=== PATIENT | female | born 1975 | race Caucasian/White ===

== ENCOUNTER 2023-12-30 08:08 | Emergency (ER) | payer OTHER, SELFPAY ==
[2023-12-30] VITALS (11 sets, daily range): BP systolic 101–157; BP diastolic 62–82; PULSE 65–90; RESP 11–29; TEMP 36.6; O2SAT 95–98; BMI 26.6
--- NOTE | 2023-12-30 08:13 | DI.RAD.S_ITS ---
PROCEDURE: XR CHEST 1V INDICATIONS: chest pain TECHNIQUE: One view of the chest was acquired. COMPARISON: None. FINDINGS: Surgical changes and devices: None. Lungs and pleura: Lungs are clear. No pleural effusions or pneumothorax. Mediastinum: Mediastinal contours appear normal. Heart size is normal. Bones and chest wall: No suspicious bony lesions. Overlying soft tissues appear unremarkable. IMPRESSION: No acute cardiopulmonary abnormality is seen. Approved by: Shwetha Martisn M.D. on 12/30/2023 at 9:30
--- NOTE | 2023-12-30 08:51 | ED.CHESTPAIN ---
HPI - Chest Pain General Chief Complaint: Chest Pain Stated Complaint: chets pain, difficulty breathing Time Seen by Provider: 12/30/23 08:18 Source: patient Mode of arrival: Ambulatory History of Present Illness HPI narrative: Patient 48-year-old healthy female presents today with upper respiratory like symptoms.. She reports that they been ongoing for 5 days. She has been traveling recently. About 4 days ago she got a really sore throat she has had some body aches but no real fever. She presents today because every time she takes a deep breath she does not feel like she is in healing all the way and it hurts the end. No productive cough no abdominal pain nausea or vomiting. Related Data Home Medications Medication Instructions Recorded Confirmed No Known Home Medications 12/30/23 12/30/23 Allergies Allergy/AdvReac Type Severity Reaction Status Date / Time No Known Drug Allergies Allergy Verified 12/30/23 08:24 Patient History Social History Smoking Status: Never smoker Smoking Status: Never smoker alcohol intake frequency: holidays/special occasions only Substance Use Type: marijuana Exam Initial Vital Signs Initial Vital Signs: Vital Signs Pulse Rate 90 12/30/23 08:15 Respiratory Rate 15 12/30/23 08:15 Pulse Oximetry 97 12/30/23 08:15 GENERAL: Alert pleasant 48-year-old female and in no acute distress. HEENT: Head atraumatic,EOMI, pupils reactive, face symmetric, moist mucous membranes CARDIOVASCULAR: Regular rate and rhythm without murmurs, rubs or gallops. RESPIRATORY: Breath sounds equal bilaterally, no wheezes rales or rhonchi. No conversational dyspnea ABDOMEN: Soft, nontender. Normoactive bowel sounds all 4 quadrants. No guarding or rebound. EXTREMITIES: Normal range of motion, no clubbing or edema. Neurovascularly intact NEUROLOGICAL: Alert and oriented x4.Normal gait and speech. SKIN: Warm, dry, no laceration, no petechiae, no rashes or lesions. Course Orders Ordered: ED Orders 12/30/23 08:13 XR chest 1V Stat 12/30/23 08:20 Covid-19 + FLU A/B + RSV - PCR Stat EKG-12 Lead Stat 12/30/23 08:24 Complete Blood Count AUTO DIFF Stat Comprehensive Metabolic Panel Stat DD [D Dimer] Stat Lipase Stat Magnesium Stat PTT Partial Thromboplastin Klaus Stat Prothrombin Time INR Stat Troponin & CK Cardiac Panel Stat Discontinued Medications Albuterol (Albuterol 2.5 Mg/3 Ml Neb (Adult)) 2.5 mg INH NOW ONE Stop: 12/30/23 08:58 Last Admin: 12/30/23 09:19 Dose: 2.5 mg Documented By: KARLIE Albuterol (Albuterol Hfa Prepack) 1 box MISC DIRECTED ONE Stop: 12/30/23 10:11 Last Admin: 12/30/23 10:47 Dose: 1 box Documented By: ROXANNE Aspirin (Aspirin 81 Mg Chew Tab) 324 mg PO NOW ONE Stop: 12/30/23 08:14 Last Admin: 12/30/23 09:27 Dose: Not Given Documented By: ROXANNE Vital Signs Vital signs: Vital Signs - 8 hr 12/30/23 08:15 12/30/23 08:16 12/30/23 08:16 Temperature Pulse Rate 90 87 Respiratory Rate 15 14 Blood Pressure 157/82 H Pulse Oximetry 97 97 Oxygen Delivery Method 12/30/23 08:21 12/30/23 08:30 12/30/23 09:00 Temperature 97.9 F Pulse Rate 79 81 75 Respiratory Rate 17 24 29 H Blood Pressure 157/62 H Pulse Oximetry 98 97 97 Oxygen Delivery Method Room Air 12/30/23 09:20 12/30/23 09:25 12/30/23 09:25 Temperature Pulse Rate 77 65 Respiratory Rate 16 11 L Blood Pressure 111/72 Pulse Oximetry 97 98 Oxygen Delivery Method Room Air 12/30/23 09:30 12/30/23 09:30 12/30/23 10:00 Temperature Pulse Rate 75 70 Respiratory Rate 21 14 Blood Pressure 114/76 Pulse Oximetry 97 95 Oxygen Delivery Method 12/30/23 10:00 12/30/23 10:30 12/30/23 10:30 Temperature Pulse Rate 70 Respiratory Rate 16 Blood Pressure 101/67 106/71 Pulse Oximetry 96 Oxygen Delivery Method Room Air 12/30/23 11:01 Temperature Pulse Rate 69 Respiratory Rate 18 Blood Pressure 106/71 Pulse Oximetry 98 Oxygen Delivery Method Room Air MDM - Chest Pain Lab Data 12/30/23 08:24 12/30/23 08:24 Labs: Lab Results 12/30/23 12/30/23 Range/Units 08:20 08:24 WBC 6.2 (4.5-11.0) X10^3/uL RBC 4.46 (4.0-5.2) X10^6/uL Hgb 13.4 (12.0-16.0) g/dL Hct 39.7 (36-46) % MCV 89.1 (80-100) fL MCH 30.1 (26-34) PG MCHC 33.8 (30-36) % RDW 13.4 (11.6-14.8) % Plt Count 194 (150-400) X10^3/uL Neut % (Auto) 72.1 (50-75) % Lymph % (Auto) 19.2 L (25-40) % [place] % (Auto) 6.7 (3-14) % Eos % (Auto) 1.4 L (2-4) % Baso % (Auto) 0.6 (0-2) % Neut # (Auto) 4500 (9506-3870) /uL Lymph # (Auto) 1200 (2947-5968) /uL [place] # (Auto) 400 (0-900) /uL Eos # (Auto) 100 (0-450) /uL Baso # (Auto) 0 (0-100) /uL PT 11.6 (9.4-12.5) SECONDS INR 1.0 (0.9-1.3) APTT 35 (25.1-36.5) SECONDS D-Dimer 354 (<500) ng/ml Sodium 139 (137-145) mmol/L Potassium 4.3 (3.4-5.1) mmol/L Chloride 107 (98-107) mmol/L Carbon Dioxide 25 (22-32) mmol/L BUN 10 (7-17) mg/dL Creatinine 0.71 (0.52-1.04) mg/dL Estimated GFR > 60 (>60) mL/min BUN/Creatinine Ratio 14.1 (6-22) Glucose 99 (70-100) mg/dL Calcium 9.1 (8.4-10.2) mg/dL Magnesium 2.2 (1.6-2.3) mg/dL Total Bilirubin 0.6 (0.2-1.3) mg/dL AST 50 H (14-36) IU/L ALT 57 H (<35) IU/L Alkaline Phosphatase 63 (38-126) U/L Total Creatine Kinase 44 (30-135) U/L Troponin I < 0.012 (0.01-0.034) ng/mL Total Protein 7.7 (6.3-8.2) g/dL Albumin 4.3 (3.5-5.0) g/dL Globulin 3.4 (1.7-4.1) g/dL Albumin/Globulin Ratio 1.3 (1.0-2.8) Lipase 71 (23-300) U/L SARS-CoV-2 (PCR) Negative (Negative) Influenza A (RT-PCR) Flu a negative (NEGATIVE) Influenza B (RT-PCR) Flu b negative (NEGATIVE) RSV (PCR) Negative (Negative) Imaging Data Chest x-ray: Radiologist's Impression: PROCEDURE: XR CHEST 1V INDICATIONS: chest pain TECHNIQUE: One view of the chest was acquired. COMPARISON: None. FINDINGS: Surgical changes and devices: None. Lungs and pleura: Lungs are clear. No pleural effusions or pneumothorax. Mediastinum: Mediastinal contours appear normal. Heart size is normal. Bones and chest wall: No suspicious bony lesions. Overlying soft tissues appear unremarkable. IMPRESSION: No acute cardiopulmonary abnormality is seen. Approved by: Shwetha Martins M.D. on 12/30/2023 at 9:30 ECG Data Attestation: I personally reviewed and interpreted this ECG as follows: Interpretation: Normal sinus rhythm rate 74 WV interval 148 QRS [address] changes T-wave inversion noted in lead 3 only MDM Narrative Medical decision making narrative: Patient 48-year-old healthy female today with upper respiratory like symptoms. Feels like she can not take a full breath. Mild body aches and sore throat. On exam she has no respiratory distress or wheezing. She also recently traveled on an airplane Blood work has been reviewed she has a negative D-dimer negative respiratory panel no leukocytosis or evidence of infection. Chest x-ray has been reviewed without evidence of pneumonia. Patient likely has upper respiratory viral infection. No evidence of sepsis. No need for antibiotics. This time supportive care only. She was trialed on an albuterol nebulizer been it did not much relief. Although after waiting she reports maybe she had a little she is open to having an inhaler to go home with Discharge Plan Departure Patient Disposition: Home Clinical Impression: Upper respiratory infection Instructions: DI for Viral Upper Respiratory Infection -- Adult Activity Restrictions/Additional Instructions: *You have been diagnosed with upper respiratory infection *What to do: At this time you likely have a viral infection. Blood work is reassuring x-ray does not show pneumonia no need for antibiotics *Continue to take medications as directed Albuterol inhaler 1-2 puffs every 4 hours only if you needed *Follow up with your primary care provider in 2-3 days or call [phone] *Return to ER if you should have increasing shortness of breath chest pain or any new, worsening or concerning symptoms Prescriptions: No Action No Known Home Medications Stand Alone Forms: Patient Portal/API
[2023-12-30 08:53] LABS: Add Manual Diff / Slide Review NO; Basophils Absolute Auto 0 /uL (0-100); Basophils Percent Auto 0.6 % (0-2); Eosinophils Absolute Auto 100 /uL (0-450); Eosinophils Percent Auto 1.4 % (2-4); Hematocrit 39.7 % (36-46); Hemoglobin 13.4 g/dL (12.0-16.0); Lymphocytes Absolute Auto 1200 /uL (1100-4500); Lymphocytes Percent Auto 19.2 % (25-40); Mean Corpuscular HGB Conc 33.8 % (30-36); Mean Corpuscular Hemoglobin 30.1 PG (26-34); Mean Corpuscular Volume 89.1 fL (80-100); Monocytes Absolute Auto 400 /uL (0-900); Monocytes Percent Auto 6.7 % (3-14); Neutrophils Absolute Auto 4500 /uL (1500-7000); Neutrophils Percent Auto 72.1 % (50-75); Platelet Count 194 X10^3/uL (150-400); Red Blood Cell Count 4.46 X10^6/uL (4.0-5.2); Red Cell Distribution Width 13.4 % (11.6-14.8); White Blood Cell Count 6.2 X10^3/uL (4.5-11.0)
[2023-12-30 08:57] LABS: Prothrombin Time 11.6 SECONDS (9.4-12.5)
[2023-12-30 09:00] LABS: PTT Partial Thromboplastin Tim 35 SECONDS (25.1-36.5)
[2023-12-30 09:04] LABS: Alanine Aminotransferase 57 IU/L (<35); Albumin 4.3 g/dL (3.5-5.0); Albumin Globulin Ratio 1.3 (1.0-2.8); Alkaline Phosphatase 63 U/L (38-126); Aspartate Aminotransferase 50 IU/L (14-36); BUN Creatinine Ratio 14.1 (6-22); Bilirubin Total 0.6 mg/dL (0.2-1.3); Blood Urea Nitrogen 10 mg/dL (7-17); Calcium 9.1 mg/dL (8.4-10.2); Carbon Dioxide 25 mmol/L (22-32); Chloride 107 mmol/L (98-107); Creatine Kinase 44 U/L (30-135); Estimated Glomerular Filt Rate > 60 mL/min (>60); Globulin 3.4 g/dL (1.7-4.1); Glucose 99 mg/dL (70-100); Lipase 71 U/L (23-300); Magnesium 2.2 mg/dL (1.6-2.3); Potassium 4.3 mmol/L (3.4-5.1); Sodium 139 mmol/L (137-145); Total Protein 7.7 g/dL (6.3-8.2)
[2023-12-30 09:06] LABS: HEMOLYSIS 63 (0-50)
[2023-12-30 09:07] LABS: D Dimer 354 ng/ml (<500)
[2023-12-30 09:14] LABS: Troponin I < 0.012 ng/mL (0.01-0.034)
[2023-12-30] MEDS: ALBUTEROL 2.5 MG/3 ML NEB (ADULT) INH (09:19)
[2023-12-30 09:45] LABS: COVID-19 CEPHEID 4-PLEX PCR Negative (Negative); Influenza A - CEPHEID Flu A NEGATIVE (NEGATIVE); Influenza B - CEPHEID Flu B NEGATIVE (NEGATIVE); Respiratory Syncytial Virus Negative (Negative)
[2023-12-30] MEDS: ALBUTEROL HFA PREPACK 1 BOX MISC (10:47)
== END 2023-12-30 11:02 | disposition home or self-care (01) ==
PROVIDERS: Emergency Provider Emergency Medicine
DX: J06.9 Acute upper respiratory infection, unspecified (principal); J02.9 Acute pharyngitis, unspecified; R07.9 Chest pain, unspecified; Z20.822 Contact with and (suspected) exposure to COVID-19
CPT/HCPCS: 0241U; 36415; 71045; 80053; 82550; 83690; 83735; 84484; 85025; 85379; 85610; 85730; 93005; 94640; 99284; J7613